=== PATIENT | male | born 1950 | race Caucasian/White ===

== ENCOUNTER 2018-04-15 08:07 | Day surgery (SDC) | payer MEDICARE, OTHER ==
[~2018-04-15 08:07] MED LIST: CIPROFLOXACIN 400 MG in D5W 200 ML IVPB; EPHEDrine SULFATE 50 MG/5 ML SYG
[2018-04-15] MEDS ORDERED: LIDOCAINE 2% (SDV) 5 ML INJ (09:29)
[2018-04-15] MEDS ORDERED: FENTAnyl 50 MCG/ML VIAL (09:29)
[2018-04-15] MEDS ORDERED: PROPOFOL 20 ML (09:29)
[2018-04-15] MEDS ORDERED: MIDAZOLAM 1 MG/ML 2 ML INJ (09:29)
[2018-04-15] MEDS ORDERED: HYDROmorphONE 1 MG/5 ML IV SYRINGE IV (09:30)
[2018-04-15] MEDS ORDERED: OXYCODONE/ACETAMINOPHEN (5/325) TAB PO ×3 (09:30→15:00)
[2018-04-15] MEDS ORDERED: FAMOTIDINE 20 MG INJ (09:31)
[2018-04-15] MEDS ORDERED: ONDANSETRON 4 MG INJ (09:31)
[2018-04-15] MEDS ORDERED: METOCLOPRAMIDE 10 MG INJ (09:31)
[2018-04-15] MEDS ORDERED: DEXAMETHASONE 4 MG/ML 5 ML INJ (09:31)
[2018-04-15] MEDS ORDERED: CIPROFLOXACIN 400MG/D5W 200 ML (10:48)
[2018-04-15] MEDS: MEPERIDINE 25 MG INJ IV (13:10)
[2018-04-15] MEDS: ONDANSETRON 4 MG INJ IV (13:10)
[2018-04-15] MEDS: HYDROmorphONE 1 MG/5 ML IV SYRINGE IV ×2 (13:21→13:30)
== END 2018-04-15 16:00 | disposition home or self-care (01) ==
LOC: SDS 08:07
DX: N40.1 Benign prostatic hyperplasia with lower urinary tract symptoms (principal); N13.8 Other obstructive and reflux uropathy; E78.5 Hyperlipidemia, unspecified; E11.9 Type 2 diabetes mellitus without complications
CPT/HCPCS: 82962; 87086

== ENCOUNTER 2018-04-16 18:46 | Emergency (ER) | payer MEDICARE, OTHER ==
[2018-04-16] MEDS: LIDOCAINE 2% JEL.PF.APP 5 ML UROJET SYRINGE MM (21:20)
[2018-04-16] MEDS: morphine 10 MG INJ IM (21:28)
[2018-04-16] MEDS: PHENAZOPYRIDINE 100 MG TAB PO (22:20)
[2018-04-16] MEDS: BELLADONNA ALK/OPIUM SUPP PR (22:20)
== END 2018-04-16 23:12 | disposition home or self-care (01) ==
LOC: E/R 18:46
DX: N48.89 Other specified disorders of penis (principal); E11.9 Type 2 diabetes mellitus without complications; Z79.4 Long term (current) use of insulin; Z79.84 Long term (current) use of oral hypoglycemic drugs
CPT/HCPCS: 51702; 96372; 99284-25